=== PATIENT | female | born 1955 | race Caucasian/White ===

== ENCOUNTER → 2016-12-27 | Outpatient (CLI) | payer BC | END | disposition home or self-care (01) | LOC: GMAH 12:57 | PROVIDERS: ATTEND Family Medicine | DX: M79.641 Pain in right hand (principal); M79.642 Pain in left hand ==

== ENCOUNTER → 2017-02-25 | Outpatient (CLI) | payer BC | END | disposition home or self-care (01) | LOC: LAB.O 11:27 | PROVIDERS: ATTEND Orthopaedic Surgery Sports Medicine | DX: G56.01 Carpal tunnel syndrome, right upper limb (principal) ==

== ENCOUNTER → 2017-05-06 | Outpatient (CLI) | payer BC ==
--- NOTE | 2017-05-07 07:22 | US ---
THYROID ULTRASOUND CLINICAL INFORMATION: Thyroid nodule. TECHNIQUE: Standard transcutaneous scanning, two-dimensional and Doppler modes. COMPARISON: None. FINDINGS: Thyroid size: Right 3.6 x 1.6 x 1.3 cm. Left lobe 3.4 x 1.3 x 1.1 cm. Isthmus 1.9 mm. Texture: Heterogeneous. Estimated total number of nodules >/=1 cm: 0 Number of spongiform nodules >/=2 cm not described below (TR1): 0 Number of mixed cystic and solid nodules >/=1.5 cm not described below (TR2): 0 Nodule #: 1: Maximum size: 0.71 cm; All dimensions 0.64 x 0.43 cm Location: right; mid Composition: mixed cystic and solid (1) Echogenicity: very hypoechoic (3) Shape: not [id number] (0) Margins: smooth (0) Echogenic foci: none (0) ACR TI-RADS total points: 4. ACR TI-RADS risk category: TR4 (4-6 points) Significant change in size (>/= 20% in two dimensions and minimal increase of 2 mm): No Change in features: No Change in ACR TI-RADS risk category: No ACR TI-RADS recommendation: No further follow-up Nodule #: 2: Maximum size: 0.37 cm; All dimensions 0.3 x 0.2 cm Location: right; mid Composition: mixed cystic and solid (1) Echogenicity: very hypoechoic (3) Shape: not [id number] (0) Margins: smooth (0) Echogenic foci: none (0) ACR TI-RADS total points: 4. ACR TI-RADS risk category: TR4 (4-6 points) Significant change in size (>/= 20% in two dimensions and minimal increase of 2 mm): No Change in features: No Change in ACR TI-RADS risk category: No ACR TI-RADS recommendation: No further follow-up Nodule #: 3: Maximum size: 0.5 cm; All dimensions 0.3 x 0.4 cm Location: left; mid Composition: mixed cystic and solid (1) Echogenicity: hypoechoic (2) Shape: not dmqsce-pitl-degw (0) Margins: ill-defined (0) Echogenic foci: none (0) ACR TI-RADS total points: 3. ACR TI-RADS risk category: TR3 (3 points) Significant change in size (>/= 20% in two dimensions and minimal increase of 2 mm): No Change in features: No Change in ACR TI-RADS risk category: No ACR TI-RADS recommendation: No further follow-up No discrete solid masses or cysts in the adjacent soft tissues. IMPRESSION: 1. 2 nodules in the right lobe and one nodule in the left lobe. Both nodules in the right lobe grade TR 3, but less than 1 cm so no further follow-up is recommended. Left nodule grade TR 2 so no follow-up is recommended. Please see ACR TI RADS recommendations below.* 2. No abnormalities in the adjacent soft tissues. *ACR TI-RADS recommendations: TR5 (>/=7 points) - FNA if >/=1 cm, follow-up if 0.5 - 0.9 cm every year for 5 years TR4 (4-6 points) - FNA if >/=1.5 cm, follow-up if 1 - 1.4 cm in 1, 2, 3 and 5 years TR3 (3 points) - FNA if >/=2.5 cm, follow -up if 1.5 - 2.4 cm in 1, 3 and 5 years TR2 (2 points) and TR1 (0 points) - No FNA or follow-up * ACR TI-RADS recommends that no more than two nodules with the highest ACR TI-RADS total point should be biopsied and no more than four nodules should be followed. Electronically signed by: Armand Taylor MD 05/07/2017 7:21 AM NEUROLOGY TECH
== END ==
LOC: US 12:29
PROVIDERS: ATTEND Family Medicine
DX: E04.1 Nontoxic single thyroid nodule (principal)

== ENCOUNTER → 2018-04-27 | Outpatient (CLI) | payer BC | LOC: GMAH 10:21 | PROVIDERS: ATTEND Family Medicine | DX: Z13.29 Encounter for screening for other suspected endocrine disorder (principal) ==

== ENCOUNTER 2020-02-22 16:06 | Emergency (ER) | payer BC, OTHER ==
--- NOTE | 2020-02-22 16:47 | RAD ---
EXAM DESCRIPTION: Chest,1 View CLINICAL HISTORY: Dyspnea and cough COMPARISON: None Available. TECHNIQUE: One view radiograph of the chest FINDINGS: Cardiac silhouette shows normal heart size. Pulmonary vascularity is within normal limits. Hazy opacities in the lateral aspect of the mid and lower lung zones bilaterally. Costophrenic angles are sharp. No pneumothorax. No acute osseous abnormality. IMPRESSION: Hazy opacities lateral aspect of the mid and lower lung zones bilaterally concerning for infectious/inflammatory processes such as pneumonia (including COVID-9 pneumonia). Recommend follow-up chest radiograph to resolution. Electronically signed by: Jesus Stevens MD 02/22/2020 4:45 PM [facility]
--- NOTE | 2020-02-22 17:17 | ED.PDOC ---
History of Present Illness - General Chief Complaint: Respiratory Problem Stated Complaint: SOB AND FATIGUE Time Seen by Provider: 02/22/20 16:28 Source: patient, RN notes reviewed, Vital Signs reviewed Exam Limitations: no limitations - History of Present Illness Initial Comments: Patient is a 64-year-old white female who presents with complaints of worsening shortness of breath and cough. Patient was diagnosed with Covid approximately 6 days ago, but has been having symptoms x10 days. Patient noted worsening shortness of breath this morning. Additionally her cough is increased. Is nonproductive. Patient denies any chest pain or nausea. She denies any vomiting. Had a single episode of diarrhea a couple of days ago. The shortness of breath is worse with exertion. Slightly improved when she rests but it does not completely go away. Timing/Duration: 1 week Severity: moderate Activities at Onset: none Possible Cause: other - COVID-19 Improving Factors: rest Worsening Factors: movement Associated Symptoms: cough, weakness Respiratory Risk Factors: other - Patient has COVID-19 Allergies/Adverse Reactions: Allergies NO KNOWN ALLERGY Allergy (Verified 02/22/20 16:20) Home Medications: Ambulatory Orders Azithromycin [Zithromax Z-Osvaldo] 250 mg PO DAILY #6 tab 02/22/20 Methylprednisolone [Medrol Dose Osvaldo] 4 mg PO DAILY 6 Days #21 tab 02/22/20 Ondansetron [Ondansetron Odt] 4 mg PO Q6H #20 tab 02/22/20 Review of Systems - Review of Systems Constitutional: States: see HPI, malaise, weakness. Denies: chills, fever EENTM: States: no symptoms reported. Denies: eye pain, blurred vision, double vision Respiratory: States: see HPI, cough, short of breath. Denies: stridor, wheezing Cardiology: States: no symptoms reported. Denies: chest pain, palpitations, syncope Gastrointestinal/Abdominal: States: see HPI, diarrhea, nausea. Denies: abdominal pain, vomiting Genitourinary: States: no symptoms reported. Denies: dysuria, frequency Musculoskeletal: States: no symptoms reported. Denies: back pain, joint pain, neck pain Skin: States: no symptoms reported. Denies: change in color, rash Neurological: States: see HPI, headache - x1 week. SEBASTIAN is improved in the last 24 hours., weakness. Denies: tingling, tremors Endocrine: States: no symptoms reported. Denies: increased hunger, increased thirst, increased urine Hematologic/Lymphatic: States: no symptoms reported. Denies: blood clots, easy bleeding All other Systems: Reviewed and Negative, No Change from Baseline Past Medical History (General) - Patient Medical History Hx Cancer: No - Vaccination History Hx Tetanus, Diphtheria Vaccination: No Hx Influenza Vaccination: No Hx Pneumococcal Vaccination: No Immunizations Up to Date: No - Social History Hx Tobacco Use: No Hx Alcohol Use: No - Female History Patient is a Female of Child Bearing Age (10 -59 yrs old): No Family Medical History - Family History Mother Family History: Unknown Living Status: Physical Exam - Physical Exam General Appearance: Alert, Anxious, Obvious distress, Well Developed, Well Groomed, Well Hydrated, Well Nourished Eyes, Ears, Nose, Throat Exam: PERRL/EOMI, normal ENT inspection, pharynx normal Neck: non-tender, full range of motion, supple Respiratory: chest non-tender, no accessory muscle use, respiratory distress - mild, decreased breath sounds - in bases bilaterally, rales - in bases bilaterally Cardiovascular/Chest: normal peripheral pulses, regular rate, rhythm, no edema, no gallop, no JVD, no murmur Peripheral Pulses: radial,right: 2+, radial,left: 2+ Gastrointestinal/Abdominal: normal bowel sounds, non tender, soft, no organomegaly Extremity: normal range of motion, non-tender, normal inspection Neurologic: mooner II-XII nml as tested, no motor/sensory deficits, alert, normal mood/affect, oriented x 3 Skin Exam: normal color, warm/dry Lymphatic: no adenopathy Progress - Progress Progress: Differential diagnosis: COVID-19, pneumonia, viral URI, bronchitis among others. 02/22/20 18:17 Patient is improved after the albuterol treatment. Will send her home with the albuterol MDI and spacer. Laboratory work is relatively unremarkable except for a mildly elevated D-dimer. Troponin is negative. Chest x-ray shows she has infiltrates consistent with pneumonia versus COVID-19. Will start the patient on Zithromax and Medrol Dosepak. Additionally patient has some nausea so I will start her on some Zofran ODT. I discussed this plan of care with the patient she voices understanding and agreement with current plan of care. Patient will follow up with her PCP in the next 2 to 3 days. Carlin Foy M.D. #[id number] - Results/Orders Results/Orders: EXAM DESCRIPTION: Chest,1 View CLINICAL HISTORY: Dyspnea and cough COMPARISON: None Available. TECHNIQUE: One view radiograph of the chest FINDINGS: Cardiac silhouette shows normal heart size. Pulmonary vascularity is within normal limits. Hazy opacities in the lateral aspect of the mid and lower lung zones bilaterally. Costophrenic angles are sharp. No pneumothorax. No acute osseous abnormality. IMPRESSION: Hazy opacities lateral aspect of the mid and lower lung zones bilaterally concerning for infectious/inflammatory processes such as pneumonia (including COVID-9 pneumonia). Recommend follow-up chest radiograph to resolution. Electronically signed by: Jesus Stevens MD 02/22/2020 4:45 PM [facility] 02/22/20 16:28 Isolation:Airborne ONCE 02/22/20 16:30 Pulse Ox, Continuous Monitoring STAT 02/22/20 17:30 Albuterol Inhaler [Ventolin Hfa Inhaler] 2 puff INH RTQID 02/23/20 16:30 Pulse Ox, Continuous Monitoring STAT 02/24/20 16:30 Pulse Ox, Continuous Monitoring STAT Laboratory Results - last 24 hr 02/22/20 02/22/20 02/22/20 16:46 16:46 16:46 WBC 5.2 RBC 4.80 Hgb 13.0 Hct 38.1 MCV 79.4 L MCH 27.2 MCHC 34.2 RDW 13.6 Plt Count 184 MPV 7.7 Absolute Neuts (auto) 4.20 Absolute Lymphs (auto) 0.50 L Absolute Monos (auto) 0.40 Absolute Eos (auto) 0.00 Absolute Basos (auto) 0.00 Neutrophils % 81.3 H Lymphocytes % 9.7 L Monocytes % 8.7 Eosinophils % 0.1 L Basophils % 0.2 PTT (SP) 26.2 D-Dimer, Quantitative 343.0 Sodium 140 Potassium 3.7 Chloride 104 Carbon Dioxide 23 Anion Gap 16.7 BUN 14 Creatinine 0.75 BUN/Creatinine Ratio 18.7 Random Glucose 103 Serum Osmolality 280.1 Calcium 8.4 Magnesium 1.8 Total Bilirubin 0.7 AST 31 ALT 16 Alkaline Phosphatase 62 LD Total 261 H Creatine Kinase 35 Troponin I C-Reactive Protein 5.0 H B-Natriuretic Peptide < 15.0 Serum Total Protein 6.9 Albumin 3.8 Globulin 3.1 Albumin/Globulin Ratio 1.2 02/22/20 16:46 WBC RBC Hgb Hct MCV MCH MCHC RDW Plt Count MPV Absolute Neuts (auto) Absolute Lymphs (auto) Absolute Monos (auto) Absolute Eos (auto) Absolute Basos (auto) Neutrophils % Lymphocytes % Monocytes % Eosinophils % Basophils % PTT (SP) D-Dimer, Quantitative Sodium Potassium Chloride Carbon Dioxide Anion Gap BUN Creatinine BUN/Creatinine Ratio Random Glucose Serum Osmolality Calcium Magnesium Total Bilirubin AST ALT Alkaline Phosphatase LD Total Creatine Kinase Troponin I 0.03 C-Reactive Protein B-Natriuretic Peptide Serum Total Protein Albumin Globulin Albumin/Globulin Ratio Vital Signs 02/22/20 02/22/20 02/22/20 16:20 16:27 16:30 Temperature 97.6 F Pulse Rate Pulse Rate [ 98 H PULSE OX] Respiratory 18 18 18 Rate Blood Pressure 142/83 125/81 [RA] O2 Sat by Pulse 95 93 L Oximetry 02/22/20 02/22/20 17:11 17:48 Temperature Pulse Rate 82 Pulse Rate [ PULSE OX] Respiratory 18 18 Rate Blood Pressure 129/83 [RA] O2 Sat by Pulse 96 98 Oximetry Departure - Departure Clinical Impression: COVID-19 Pneumonia Qualifiers: Pneumonia type: due to unspecified organism Laterality: bilateral Lung location: unspecified part of lung Qualified Code(s): J18.9 - Pneumonia, unspecified organism Dyspnea Qualifiers: Dyspnea type: shortness of breath Qualified Code(s): R06.02 - Shortness of breath; R06.00 - Dyspnea, unspecified; R06.01 - Orthopnea Time of Disposition: 18:20 Disposition: Discharge to Home or Self Care Condition: Fair Departure Forms: ED Discharge - Pt. Copy, Patient Portal Self Enrollment Instructions: Coronavirus Disease 2019 (COVID-19), Pneumonia, Adult (DC) Diet: resume usual diet Activity: increase activity as tolerated Referrals: Kurt Chaves MD [Primary Care Provider] - 1-5 Days Prescriptions: Methylprednisolone [Medrol Dose Osvaldo] 4 mg PO DAILY 6 Days #21 tab Ondansetron [Ondansetron Odt] 4 mg PO Q6H #20 tab Azithromycin [Zithromax Z-Osvaldo] 250 mg PO DAILY #6 tab Home Medications: Ambulatory Orders Azithromycin [Zithromax Z-Osvaldo] 250 mg PO DAILY #6 tab 02/22/20 Methylprednisolone [Medrol Dose Osvaldo] 4 mg PO DAILY 6 Days #21 tab 02/22/20 Ondansetron [Ondansetron Odt] 4 mg PO Q6H #20 tab 02/22/20
[2020-02-22] MEDS ORDERED: ALBUTEROL INHALER 64 PUFF/8GM INH SCH (17:30)
[2020-02-22 18:58] VITALS: BP 138/83; TEMP 97.4; O2SAT 94
== END 2020-02-22 18:58 | disposition home or self-care (01) ==
LOC: ER 16:06
DX: U07.1 COVID-19 (principal); J12.89 Other viral pneumonia

== ENCOUNTER → 2020-04-06 | Outpatient (CLI) | payer OTHER | LOC: GMA MATASK 10:46 | PROVIDERS: ATTEND Family Medicine | DX: Z00.00 Encounter for general adult medical examination without abnormal findings (principal) ==